=== PATIENT | female | born 1995 | race African-American/Black ===

== ENCOUNTER 2021-05-09 17:53 | Emergency (ER) | payer OTHER ==
[~2021-05-09] VITALS: Ht 165.1 cm; Wt 50.3 kg
[2021-05-09 17:57] VITALS: BP_SYST 120
--- NOTE | 2021-05-09 17:57 | NUR ---
BROUGHT BACK TO BED #4 AND TRIAGED. REPORT GIVEN TO CHEMO
--- NOTE | 2021-05-09 18:10 | NUR ---
Dr. cárdenas at bedside with patient.
--- NOTE | 2021-05-09 18:14 | NUR ---
patient AAOx4 and ambulatory from home c/o right lower quadrant abdominal pain with nausea, vomiting. patient was seen at [facility] earlier today and needed a cat scan. patient left AMA without cat scan. rating 8/10 on the pain scale. requesting not to have labs redrawn stating she will pull records up from [facility].
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
[2021-05-09] MEDS ORDERED: IBUP-1969 PO (19:10)
[2021-05-09 19:14] VITALS: BP_SYST 120
--- NOTE | 2021-05-09 19:15 | NUR ---
Patient given written and verbal discharge instructions and verbalizes understanding. Dr. Song KNIGHT MD discussed with patient the results and treatment provided. Patient in stable condition. ID arm band removed. Rx of motrin given. Patient educated on pain management and to follow up with PMD. Pain Scale 0/10 . Opportunity for questions provided and answered. Medication side effect fact sheet provided.
== END 2021-05-09 19:14 | disposition home or self-care (01) ==
LOC: SED 17:53
DX: R10.2 Pelvic and perineal pain (principal); Z79.899 Other long term (current) drug therapy
CPT/HCPCS: 76376; 81025; 99284

== ENCOUNTER 2022-06-16 17:25 | Emergency (ER) | payer OTHER ==
[~2022-06-16 17:25] MED LIST: IBUP-1969 PO
[2022-06-16 18:23] VITALS: BP_SYST 125
[2022-06-16] MEDS ORDERED: ONDA-8 TL (20:15)
[2022-06-16] MEDS ORDERED: IBUP-1971 PO (20:15)
[2022-06-16 20:20] VITALS: BP_SYST 121
== END 2022-06-16 20:21 | disposition home or self-care (01) ==
LOC: SED 17:25
DX: S01.112A Laceration without foreign body of left eyelid and periocular area, initial encounter (principal); Z79.899 Other long term (current) drug therapy; W01.0XXA Fall on same level from slipping, tripping and stumbling without subsequent striking against object, initial encounter; Y93.89 Activity, other specified; Y92.89 Other specified places as the place of occurrence of the external cause; Y99.8 Other external cause status
CPT/HCPCS: 70450-TC; 70480; 76376; 99284